=== PATIENT | female | born 1995 | race Caucasian/White ===

== ENCOUNTER 2018-11-28 16:33 | Observation (INO) | payer BC, SELFPAY ==
[2018-11-28 16:34] VITALS: BP 129/79; PULSE 83; RESP 16; TEMP 36.3; O2SAT 96; BMI 36.4
--- NOTE | 2018-11-28 17:25 | CT_ITS ---
STUDY: CT BRAIN WITHOUT CONTRAST REASON FOR EXAM: Female, 23 years old. Left lower wild weakness and numbness RADIATION DOSAGE (If Supplied By Facility): CTDIvol = ( 44.99 ) mGy, DLP = ( 829.85 ) mGycm TECHNIQUE: Transaxial CT imaging of the brain was performed without administration of intravenous contrast material. Individualized dose optimization techniques were used for this CT. COMPARISON: No relevant priors. FINDINGS: Brain parenchyma is intact without acute intracranial hemorrhage, mass effect, midline shift, hydrocephalus or herniation. There is enlargement of the pineal gland measuring 1.8 cm with CSF equivalent density, most likely cyst. The skull is intact. CT/Brain/Head without Contrast IMPRESSION: 1. No acute findings. 2. 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 This can be confirmed with elective nonemergent MR of the brain with and without contrast. Electronically Signed: Edgar Pizano, at 17:50 EDT Tel , Service support ,
--- NOTE | 2018-11-28 17:25 | EKG12_ITS ---
Test Reason : LOWER EXTREMITY Blood Pressure : / mmHG Vent. Rate : 066 BPM Atrial Rate : 066 BPM P-R Int : 158 ms QRS Dur : 084 ms QT Int : 376 ms P-R-T Axes : 008 035 018 degrees QTc Int : 394 ms Normal sinus rhythm Normal ECG Confirmed by BLOSSOM SPEAR MD ([id number]), medical editor HAYLEY NELSON ([id number]) on 12/02/2018 8:52:01 AM Referred By: KIRAN Confirmed By:BLOSSOM SPEAR MD
--- NOTE | 2018-11-28 17:27 | ED.VIS.STROK ---
History of Present Illness Chief Complaint: Lower Extremity Injury Onset: Days - 3 Context: - - awoke w/ sx Quality and Location: Left Leg Parasthesia, Left Leg Weakness Current Severity: Severe Maximum Severity: Severe Worsened by: nothing Relieved by: nothing Associated Symptoms: Negative for: Headache, Nausea, Vomiting, Chest Pain Narrative: Patient has had a foot drop for the last 3 days and basically has been walking around for 3 days dragging her foot. She has been numb from the proximal atwood down, all on the left side. She has had no other focal neurologic symptoms in her right lower extremity or upper extremities, no headaches, no back pain, no fevers, no vision changes, no recent injuries. She states the paresthesias are painful. Prior similar symptoms: No - Past Medical History (1) Depression Status: Chronic (2) Anxiety Status: Chronic (3) IBS (irritable bowel syndrome) Status: Chronic (4) Migraines Status: Chronic Past Medical History - Allergies and Home Meds Allergies/Adverse Reactions: Allergies No Known Allergies Allergy (Verified 11/28/18 16:35) Primary Care Physician: Jose G Bains DO [Primary Care Provider] - Smoking Status: Current every day smoker Review of Systems General: Denies: Chills, Fever, Sweats Eyes: Denies: Visual changes - bilaterally, Diplopia ENT: Denies: Rhinorrhea, Sore throat Cardiovascular: Denies: Chest pain, Palpitations Respiratory: Denies: Dyspnea, Cough, Dyspnea on exertion Gastrointestinal: Denies: Abdominal pain, Nausea, Vomiting, Diarrhea, Melena, Hematochezia Genitourinary: Denies: Dysuria, Hematuria, Frequency Musculoskeletal: Denies: Neck pain, Back pain, Extremity Pain Skin: Denies: Rash, Wounds Neurological: Reports: Weakness, Numbness. Denies: Headache Physical Exam Vital Signs/Narrative: Vital Signs Temp Pulse Resp BP Pulse Ox 11/28/18 16:34 97.4 F L 83 16 129/79 H 96 Inital Vital Signs reviewed: Yes - NIH Stroke Scale 1a Level of Consciousness: 0 1b LOC Questions (Score 2 if aphasic/stupor): 0 1c LOC Commands (Only score 1st attempt): 0 2 Best Gaze (If aphasic, use reflexive mvmts.): 0 3 Visual: 0 4 Facial Palsy: 0 5 Motor Arm Right (UN = amputation/fusion): 0 5 Motor Arm Left: 0 6 Motor Leg Right: 0 6 Motor Leg Left: 0 7 Limb ataxia (Only + if out of proportion): 0 8 Sensory (Aphasia/stupor=0 or 1, coma=2): 1 9 Best Language: 0 10 Dysarthria (mute, coma=2, intubated=UN): 0 11 Extinction and Inattention (only scored if +): 0 Total Score: 1 General: Well nourished, Well developed Head: Normocephalic, Atraumatic Eyes: Perrl, EOMI ENT: Moist mucous membranes, No rhinorrhea Neck: Supple, Nontender Cardiovascular: Regular rate, Regular rhythm, No murmurs, Normal S1, Normal S2. Negative for: Tachycardia Respiratory: No distress, CTA bilaterally, Chest nontender Abdomen: Soft, Nontender, Nondistended, Normal bowel sounds Back: Nontender, Normal Inspection Extremities: Nontender, No edema Skin: Normal color, No rash Neurological: Alert, Oriented x3, Cranial nerves II-XII grossly intact, Parasthesia - below prox atwood left leg, Weakness - below left knee; not able to move ankle/foot, - - hyperreflexic left patellar DTR; nml achilles bilat, downgoing toes, no clonus bilat Psychological: Normal Mood. Negative for: Normal affect - Very flat affect Diagnostic/Tx/Re-eval Impressions Brain CT 11/28/18 17:25 IMPRESSION: 1. No acute findings. 2. 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 This can be confirmed with elective nonemergent MR of the brain with and without contrast. Electronically Signed: Edgar Pizano, at 17:50 EDT Tel , Service support , 11/28/18 17:25 Brain/Head without Contrast [CT] Stat Laboratory Results 11/28/18 11/28/18 11/28/18 17:45 17:45 17:45 WBC 7.8 RBC 4.75 Hgb 14.7 Hct 44.1 MCV 92.8 MCH 30.9 MCHC 33.3 RDW 12.2 RDW Differential 41.2 Plt Count 465 H MPV 9.7 Immature Gran % (Auto) 0.400 Neut % (Auto) 61.4 Lymph % (Auto) 26.9 [place] % (Auto) 8.1 Eos % (Auto) 2.7 Baso % (Auto) 0.5 Absolute Neuts (auto) 4.8 Absolute Lymphs (auto) 2.10 Total Counted Not Reportable PT 12.8 INR 1.0 APTT 32.2 Sodium 141 Potassium 4.2 Chloride 107 Carbon Dioxide 26.0 Anion Gap 8 BUN 7 Creatinine 0.61 Estim Creat Clear Calc 129.07 Est GFR (MDRD) Af Amer 155 Est GFR (MDRD) Non-Af 128 BUN/Creatinine Ratio 11.4 Glucose 93 Calcium 9.1 Troponin I < 0.015 POC Glucose 11/28/18 17:55 WBC RBC Hgb Hct MCV MCH MCHC RDW RDW Differential Plt Count MPV Immature Gran % (Auto) Neut % (Auto) Lymph % (Auto) [place] % (Auto) Eos % (Auto) Baso % (Auto) Absolute Neuts (auto) Absolute Lymphs (auto) Total Counted PT INR APTT Sodium Potassium Chloride Carbon Dioxide Anion Gap BUN Creatinine Estim Creat Clear Calc Est GFR (MDRD) Af Amer Est GFR (MDRD) Non-Af BUN/Creatinine Ratio Glucose Calcium Troponin I POC Glucose 91 - Rhythm Strip Rhythm Strip: Sinus Rhythm Rate: 66 Ectopy: None - EKG Initial EKG Interpretation: Sinus Rhythm, No Acute Injury Pattern - nml EKG - Medical Decision Making Stroke Team Activated: No - Due to timing IV TPA Administered: No - Due to timing Discussed with neurology Dr. Carlos; he advises MRI of the brain and back to rule out central cause, although this may be peripheral. He advises admitting the patient to the hospital for that since MRI is not available at this time emergently. On further discussion with the patient and her mom, she now tells me that she has a history of pseudoseizures, and that she was at [facility] [facility] on day 1 of this in their ER, had a CT of her head that showed the pineal gland similarly, and apparently it is a little enlarged compared to imaging she had before, they have not had a chance to follow-up with her neurologist Dr. Brown yet. They are amenable to being admitted for further work-up and evaluation. Peripheral neuropathy is in the differential diagnosis, as is conversion disorder. There is no way to rule in or rule out either 1 of those at this time and her neurologic deficits persist on reevaluation. ED Disposition - Plan for ED Patient: Disposition: Acute Care Hospital [facility] Diagnosis: Left foot drop Referrals: Jose G Bains DO [Primary Care Provider] -
--- NOTE | 2018-11-28 17:30 | ED.DCSUM_ITS ---
History of Present Illness Chief Complaint: Lower Extremity Injury Onset: Days - 3 Context: - - awoke w/ sx Quality and Location: Left Leg Parasthesia, Left Leg Weakness Current Severity: Severe Maximum Severity: Severe Worsened by: nothing Relieved by: nothing Associated Symptoms: Negative for: Headache, Nausea, Vomiting, Chest Pain Narrative: Patient has had a foot drop for the last 3 days and basically has been walking around for 3 days dragging her foot. She has been numb from the proximal atwood down, all on the left side. She has had no other focal neurologic symptoms in her right lower extremity or upper extremities, no headaches, no back pain, no fevers, no vision changes, no recent injuries. She states the paresthesias are painful. Prior similar symptoms: No - Past Medical History (1) Depression Status: Chronic (2) Anxiety Status: Chronic (3) IBS (irritable bowel syndrome) Status: Chronic (4) Migraines Status: Chronic Past Medical History - Allergies and Home Meds Allergies/Adverse Reactions: Allergies No Known Allergies Allergy (Verified 11/28/18 16:35) Primary Care Physician: Jose G Bains DO [Primary Care Provider] - Smoking Status: Current every day smoker Review of Systems General: Denies: Chills, Fever, Sweats Eyes: Denies: Visual changes - bilaterally, Diplopia ENT: Denies: Rhinorrhea, Sore throat Cardiovascular: Denies: Chest pain, Palpitations Respiratory: Denies: Dyspnea, Cough, Dyspnea on exertion Gastrointestinal: Denies: Abdominal pain, Nausea, Vomiting, Diarrhea, Melena, Hematochezia Genitourinary: Denies: Dysuria, Hematuria, Frequency Musculoskeletal: Denies: Neck pain, Back pain, Extremity Pain Skin: Denies: Rash, Wounds Neurological: Reports: Weakness, Numbness. Denies: Headache Physical Exam Vital Signs/Narrative: Vital Signs Temp Pulse Resp BP Pulse Ox 11/28/18 16:34 97.4 F L 83 16 129/79 H 96 Inital Vital Signs reviewed: Yes - NIH Stroke Scale 1a Level of Consciousness: 0 1b LOC Questions (Score 2 if aphasic/stupor): 0 1c LOC Commands (Only score 1st attempt): 0 2 Best Gaze (If aphasic, use reflexive mvmts.): 0 3 Visual: 0 4 Facial Palsy: 0 5 Motor Arm Right (UN = amputation/fusion): 0 5 Motor Arm Left: 0 6 Motor Leg Right: 0 6 Motor Leg Left: 0 7 Limb ataxia (Only + if out of proportion): 0 8 Sensory (Aphasia/stupor=0 or 1, coma=2): 1 9 Best Language: 0 10 Dysarthria (mute, coma=2, intubated=UN): 0 11 Extinction and Inattention (only scored if +): 0 Total Score: 1 General: Well nourished, Well developed Head: Normocephalic, Atraumatic Eyes: Perrl, EOMI ENT: Moist mucous membranes, No rhinorrhea Neck: Supple, Nontender Cardiovascular: Regular rate, Regular rhythm, No murmurs, Normal S1, Normal S2. Negative for: Tachycardia Respiratory: No distress, CTA bilaterally, Chest nontender Abdomen: Soft, Nontender, Nondistended, Normal bowel sounds Back: Nontender, Normal Inspection Extremities: Nontender, No edema Skin: Normal color, No rash Neurological: Alert, Oriented x3, Cranial nerves II-XII grossly intact, Parasthesia - below prox atwood left leg, Weakness - below left knee; not able to move ankle/foot, - - hyperreflexic left patellar DTR; nml achilles bilat, downgoing toes, no clonus bilat Psychological: Normal Mood. Negative for: Normal affect - Very flat affect Diagnostic/Tx/Re-eval Impressions Brain CT 11/28/18 17:25 IMPRESSION: 1. No acute findings. 2. 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 This can be confirmed with elective nonemergent MR of the brain with and without contrast. Electronically Signed: Edgar Pizano, at 17:50 EDT Tel , Service support , 11/28/18 17:25 Brain/Head without Contrast [CT] Stat Laboratory Results 11/28/18 11/28/18 11/28/18 17:45 17:45 17:45 WBC 7.8 RBC 4.75 Hgb 14.7 Hct 44.1 MCV 92.8 MCH 30.9 MCHC 33.3 RDW 12.2 RDW Differential 41.2 Plt Count 465 H MPV 9.7 Immature Gran % (Auto) 0.400 Neut % (Auto) 61.4 Lymph % (Auto) 26.9 [place] % (Auto) 8.1 Eos % (Auto) 2.7 Baso % (Auto) 0.5 Absolute Neuts (auto) 4.8 Absolute Lymphs (auto) 2.10 Total Counted Not Reportable PT 12.8 INR 1.0 APTT 32.2 Sodium 141 Potassium 4.2 Chloride 107 Carbon Dioxide 26.0 Anion Gap 8 BUN 7 Creatinine 0.61 Estim Creat Clear Calc 129.07 Est GFR (MDRD) Af Amer 155 Est GFR (MDRD) Non-Af 128 BUN/Creatinine Ratio 11.4 Glucose 93 Calcium 9.1 Troponin I < 0.015 POC Glucose 11/28/18 17:55 WBC RBC Hgb Hct MCV MCH MCHC RDW RDW Differential Plt Count MPV Immature Gran % (Auto) Neut % (Auto) Lymph % (Auto) [place] % (Auto) Eos % (Auto) Baso % (Auto) Absolute Neuts (auto) Absolute Lymphs (auto) Total Counted PT INR APTT Sodium Potassium Chloride Carbon Dioxide Anion Gap BUN Creatinine Estim Creat Clear Calc Est GFR (MDRD) Af Amer Est GFR (MDRD) Non-Af BUN/Creatinine Ratio Glucose Calcium Troponin I POC Glucose 91 - Rhythm Strip Rhythm Strip: Sinus Rhythm Rate: 66 Ectopy: None - EKG Initial EKG Interpretation: Sinus Rhythm, No Acute Injury Pattern - nml EKG - Medical Decision Making Stroke Team Activated: No - Due to timing IV TPA Administered: No - Due to timing Discussed with neurology Dr. Carlos; he advises MRI of the brain and back to rule out central cause, although this may be peripheral. He advises admitting the patient to the hospital for that since MRI is not available at this time emergently. On further discussion with the patient and her mom, she now tells me that she has a history of pseudoseizures, and that she was at [place] on day 1 of this in their ER, had a CT of her head that showed the pineal gland similarl y, and apparently it is a little enlarged compared to imaging she had before, they have not had a chance to follow-up with her neurologist Dr. Brown yet. They are amenable to being admitted for further work-up and evaluation. Peripheral neuropathy is in the differential diagnosis, as is conversion disorder. There is no way to rule in or rule out either 1 of those at this time and her neurologic deficits persist on reevaluation. ED Disposition - Plan for ED Patient: Disposition: Acute Care Hospital [facility] Diagnosis: Left foot drop Referrals: Jose G Bains DO [Primary Care Provider] -
--- NOTE | 2018-11-28 17:51 | NURSING ---
NO OLD EKGS
[2018-11-28 17:54] LABS: Absolute Neutrophil Count 4.8 X10^3/uL (2.0-7.7); Basophil# 0.04 X10^3/uL; Basophil% 0.5 % (0-1); Eosinophil# 0.21 X10^3/uL; Eosinophils% 2.7 % (0-5); Hematocrit 44.1 % (37-47); Hemoglobin 14.7 g/dl (12.0-15.0); Lymphocyte % 26.9 % (19-41); Mean Corp Hgb Conc 33.3 g/gl (32-36); Mean Corpuscular Hgb 30.9 pg (27.0-32.0); Mean Corpuscular Volume 92.8 fL (81-99); Mean Platelet Vol. 9.7 fl (6.2-12.0); Monocyte# 0.63 X10^3/uL; Monocyte% 8.1 % (0-10); Neutrophil # 4.81 X10^3/uL (2.7-7.7); Neutrophil % 61.4 % (47-70); Platelet Count 465 K/mm3 (150-450); RBC Distribution Width CV 12.2 % (11.6-14.6); RBC Distribution Width SD 41.2 fl (35.1-43.9); Red Blood Count 4.75 M/mm3 (4.2-5.4); White Blood Count 7.8 K/mm3 (4.4-11.0)
[2018-11-28 18:01] LABS: Bedside Glucose 91 mg/dL (70-110)
[2018-11-28 18:03] LABS: POSITIVE COUNT NO; POSITIVE DIFFERENTIAL NO; POSITIVE MORPHOLOGY NO
[2018-11-28 18:08] LABS: Anion Gap 8 (5-15); BUN 7 mg/dL (7-18); BUN/Creat Ratio 11.4 RATIO (10-20); Calcium,Total 9.1 mg/dL (8.5-10.1); Chloride 107 mmol/L (98-107); Creatinine, Serum 0.61 mg/dL (0.55-1.02); EST Glomerular Filtration Rate 128 mL/min (>60); Est Glom Filt Rate - Afr Amer 155 mL/min (>60); Estimated Creatinine Clearance 129.07 ml/min; Glucose 93 mg/dL (74-106); Potassium 4.2 mmol/L (3.5-5.1); Prothrombin Time (Protime)PT. 12.8 SECONDS (11.7-14.9); Sodium Level 141 mmol/L (136-145)
[2018-11-28 18:09] LABS: Partial Thromboplast Time 32.2 Seconds (24.1-36.2)
--- NOTE | 2018-11-28 19:40 | ED.RN ---
PT UP TO BATHROOM WHILE WAITING FOR NEUROLOGY TO CALL BACK. NOTED FOOT DROP AND SLIGHT UNSTEADY GAIT. MOTHER WITH PT.
[2018-11-28 19:51] VITALS: BP 122/80; PULSE 73; RESP 16
--- NOTE | 2018-11-28 20:31 | PCM.HP.STD ---
Problem List (1) Left foot drop Status: Acute (2) Tobacco use Status: Chronic (3) Obesity (BMI 30-39.9) Status: Chronic (4) History of pseudoseizure Status: Chronic (5) Depression Status: Chronic Qualifiers: Depression Type: unspecified Qualified Code(s): F32.9 - Major depressive disorder, single episode, unspecified (6) Anxiety Status: Chronic (7) IBS (irritable bowel syndrome) Status: Chronic Qualifiers: Irritable bowel syndrome type: unspecified Qualified Code(s): K58.9 - Irritable bowel syndrome without diarrhea (8) Migraines Status: Chronic Qualifiers: Migraine type: unspecified Status migrainosus presence: without status migrainosus Intractability: not intractable Qualified Code(s): G43.909 - Migraine, unspecified, not intractable, without status migrainosus History of Present Illness Date of Admission: 11/28/18 Chief Complaint: L foot drop and numbness The patient is a 23 y/o F w/ PMHx: Obesity, Migraines, Anxiety and Depression, Hx Pseudoseizures, IBS, Tobacco use who presents to the [facility] ED on 11/28/18 with history of awakening this past Saturday with left foot drop and numbness which she notes has worsened with initially primarily pedal numbness and has advanced to numbness on the posterior calf and lateral calf downward. She denies any recent trauma or illnesses. She was evaluated at an outside facility with onset and following evaluation was referred to neurology, Dr. Brown but has not seen yet. She saw an orthopedic surgeon who referred her again to the ED. Work-up in the ED included T 97.4, heart rate 83, BP 129/79, respiratory rate 16, 96% on room air, unremarkable CBC aside mild platelet increased to 465, unremarkable coags, unremarkable BMP, troponin less than 0.015, CT brain with no acute findings aside presumed pineal cyst. Neurology was consulted per ED and also discussed case with Hospitalist, requested MRI brain, MRI cervical spine, MRI lumbar spine with and without contrast. Past Medical History Past Medical History (Chronic Problems): Chronic Problems Depression (Chronic) Anxiety (Chronic) IBS (irritable bowel syndrome) (Chronic) Migraines (Chronic) Tobacco use (Chronic) Obesity (BMI 30-39.9) (Chronic) History of pseudoseizure (Chronic) Allergies No Known Allergies Allergy (Verified 11/28/18 16:35) Home Medications: Ambulatory Orders Medication Instructions Recorded Gabapentin [Neurontin] 400 mg PO TID 11/29/16 ALPRAZolam [Xanax] 1 mg PO BID PRN PRN 11/28/18 Bifidobacterium Infantis [Align] 4 mg PO DAILY 11/28/18 Sertraline HCl 200 mg PO QHS 11/28/18 Zolpidem Tartrate 5 mg PO QHS 11/28/18 Surgical History: - - [place] teeth extraction. 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 Smoking Status: Current every day smoker - Patient currently smokes less than 1 pack/day prescription back used. Tobacco Use: Cigarettes Alcohol: None Drugs: None - *Family History Maternal History Items: - - Patient with maternal family history of thyroid disease. Paternal History Items: - - Patient with a paternal family history of lung cancer, former tobacco use history as well. Review of Systems Constitutional: Denies: Chills, Fever, Weight Change HEENT: Denies: Head Aches, Sinus Congestion, Sinus Drainage Cardiovascular: Denies: Chest Pain, Palpitations Respiratory: Denies: Cough, Shortness of breath at rest, Sputum production Gastrointestinal: Denies: Abdominal Pain, Nausea, Vomiting Genitourinary: Denies: Dysuria Musculoskeletal: Denies: Joint Pain, Joint Tenderness Skin: Denies: Rash, Wounds Neurological: Reports: Focal weakness, Numbness. Denies: Tingling Psychiatric: Reports: Anxiety, Depression. Denies: Homicidal Ideations, Suicidal Ideations Hematologic/ Lymphatic: Denies: Easy Bruising, Easy Bleeding VTE Information - Inpt Only VTE Present on Admission: No VTE Mechan Device Prophylaxis: SCD's VTE Pharm Prophylaxis ordered?: Yes Patient Problems: Active and Suspected Problems Left foot drop (Acute) Subjective: Seated upright in ED bed, no acute distress, mildly irritable. Objective: Physical Examination: General: awake, alert, oriented x 3 and cooperative, seated upright in the ED bed in no apparent distress. Skin: normal color, turgor, no icterus, cyanosis. HEENT: AT/NC, EOMI, PERRLA, MMM, no carotid bruits or JVD noted. Lungs: CTA bilaterally, moderate effort, mild decrease BL bases, no rales, ronchi or wheezing. Heart: Regular rate and rhythm; no gallop, rub audible. Abdomen: soft, obese, NTTP, ND, normal BS, no HSM. Extremities: no cyanosis, clubbing, or edema, see neurological examination. Neurological: patient awake, alert, oriented x 3; cognitive function intact; pupils equally reactive to light and accomodation; cranial nerves II-XII grossly normal, reduced sensation to the LLE starting posterior knee downward and lateral knee downward, BL reflexes intact and equal, notable debility in LLE movement, negative babinski BL, unable to perform HTS LLE, LLE strength 2/5. Psychiatric: affect appears initially mildly irritable but improved, no acute evidence of depressive or anxiety feelings. - Physical Exam Vital Signs Temp Pulse Resp BP Pulse Ox 97.4 F L 73 16 122/80 H 96 11/28/18 16:34 11/28/18 19:51 11/28/18 19:51 11/28/18 19:51 11/28/18 16:34 Oxygen Delivery Method Room Air Weight: 219 lb Body Mass Index (BMI) 36.4 Finger Stick Blood Glucose 91 Laboratory Tests Past 24 Hrs 11/28/18 11/28/18 11/28/18 17:45 17:45 17:45 WBC 7.8 RBC 4.75 Hgb 14.7 Hct 44.1 MCV 92.8 MCH 30.9 MCHC 33.3 RDW 12.2 RDW Differential 41.2 Plt Count 465 H MPV 9.7 Immature Gran % (Auto) 0.400 Neut % (Auto) 61.4 Lymph % (Auto) 26.9 [place] % (Auto) 8.1 Eos % (Auto) 2.7 Baso % (Auto) 0.5 Absolute Neuts (auto) 4.8 Absolute Lymphs (auto) 2.10 Total Counted Not Reportable PT 12.8 INR 1.0 APTT 32.2 Sodium 141 Potassium 4.2 Chloride 107 Carbon Dioxide 26.0 Anion Gap 8 BUN 7 Creatinine 0.61 Estim Creat Clear Calc 129.07 Est GFR (MDRD) Af Amer 155 Est GFR (MDRD) Non-Af 128 BUN/Creatinine Ratio 11.4 Glucose 93 Calcium 9.1 Troponin I < 0.015 POC Glucose 11/28/18 17:55 POC Glucose 91 Assessment/Plan All Active Problems Left foot drop (Acute) The patient is a 23 y/o F w/ PMHx: Obesity, Migraines, Anxiety and Depression, Hx Pseudoseizures, IBS, Tobacco use who presents to the [facility] ED on 11/28/18 with history of awakening this past Saturday with left foot drop and numbness which she notes has worsened with initially primarily pedal numbness and has advanced to numbness on the posterior calf and lateral calf downward. (1) Acute left foot drop and paresthesias: Work-up in the ED included T 97.4, heart rate 83, BP 129/79, respiratory rate 16, 96% on room air, unremarkable CBC aside mild platelet increased to 465, unremarkable coags, unremarkable BMP, troponin less than 0.015, CT brain with no acute findings aside presumed pineal cyst. Will admit to PCU, maintain on telemetry monitoring, continue neurology evaluation, will obtain MRI brain, cervical spine as well as a lumbar spine with and without contrast per discussion with neurology, maintain on fall precautions, PT and OT evaluations, TSH, magnesium, urine drug screen requested, maintain on neurological assessments. (2) Incidental Pineal Cyst: CT brain with no acute findings aside presumed pineal cyst, MRI brain pending as noted. (3) Tobacco Abuse: Encouraged cessation, inpatient consultation per RT, NR if desired. (4) Anxiety and depression: Continue home Xanax, sertraline regimen. (5) Chronic migraines: Patient notes that she is on chronic Neurontin therapy for chronic migraines. (6) Obesity: Weight loss and lifestyle changes encouraged. (7) IBS: We will hold home oral probiotic. (8) DVT Prophylaxis: SCDs, lovenox. Code Visit OBSV E&M: [id number] Initial observation care L3
[2018-11-28 21:38] VITALS: PULSE 73
[2018-11-28 21:49] VITALS: BMI 37.0
[2018-11-28 21:50] VITALS: BMI 37.0
[2018-11-28 21:59] VITALS: BP 112/72; PULSE 69; RESP 18; TEMP 36.9; O2SAT 97
[2018-11-28 22:03] VITALS: BP 107/73
[2018-11-28 22:18] LABS: Thyroid Stim Hormone (TSH) 0.81 uIU/mL (0.358-3.74)
[2018-11-28 23:04] VITALS: PULSE 75
[2018-11-28] MEDS: Zolpidem Tartrate 5 MG Tablet PO (23:05)
[2018-11-28] MEDS: Gabapentin 400 MG Capsule PO (23:05)
[2018-11-28] MEDS: Sertraline 100 MG Tablet 200 MG PO (23:06)
[2018-11-28] MEDS: Acetaminophen 325 MG Tablet 650 MG PO (23:06)
[2018-11-28] MEDS: 0.9% NaCl Peripheral Flush Adult/Peds IV (23:08)
[2018-11-28] MEDS: 0.9% Normal Saline 1,000 ML 150 ML IV (23:13)
[2018-11-29] VITALS (11 sets, daily range): BP systolic 102–124; BP diastolic 56–70; PULSE 56–75; RESP 15–16; TEMP 36.3–36.9; O2SAT 95–100
[2018-11-29] MEDS: Gabapentin 400 MG Capsule PO ×3 (05:52→22:21)
[2018-11-29] MEDS: 0.9% Normal Saline 1,000 ML 150 ML IV ×2 (05:52→16:55)
--- NOTE | 2018-11-29 06:00 | MRI_ITS ---
STUDY: MRI LUMBAR SPINE WITH AND WITHOUT CONTRAST REASON FOR EXAM: Female, 23 years old. Left foot drop since 11/25/2018. TECHNIQUE: Standardized fat and water weighted pulse sequences were obtained in the sagittal and axial planes. 20 IV Dotarem was administered for the contrast portion of the examination. COMPARISON: None FINDINGS: T11-T12: (Sagittal only). Normal endplates. Normal disc height, hydration and morphology. No ventral extradural defect. Normal central canal and bilateral intervertebral neural foramina. T12-L1: (Sagittal only). Normal endplates. Normal disc height, hydration and morphology. No ventral extradural defect. Normal central canal and bilateral intervertebral neural foramina. Normal lumbar lordosis. There is no substantial scoliosis. Normal conus medullaris that terminates at the T12-L1 disc level. L1-2: Normal endplates. Normal disc height, hydration and morphology. Normal bilateral facet joints. Normal central canal and bilateral lateral recesses. Normal bilateral intervertebral neural foramina. L2-3: Normal endplates. Normal disc height, hydration and morphology. Normal bilateral facet joints. Normal central canal and bilateral lateral recesses. Normal bilateral intervertebral neural foramina. L3-4: Normal endplates. Normal disc height, hydration and morphology. Mild central canal stenosis with an AP canal diameter of 10 mm. Mild dorsal epidural lipomatosis. Normal bilateral lateral recesses. Normal facet joints. Normal bilateral intervertebral neural foramina. L4-5: Normal endplates. Normal disc height, hydration and morphology. Mild central canal stenosis with an AP canal diameter 8.6 mm. Normal bilateral lateral recesses. Normal facet joints. Normal bilateral intervertebral neural foramina. L5-S1: Normal endplates. Normal disc height and morphology. Normal tapered termination of the thecal sac. Normal central canal and bilateral lateral recesses. Normal facet joints. Normal bilateral intervertebral foramina. Normal visualized sacral ala. Normal visualized paraspinous soft tissue structures. No enhancing lesions intradurally and extradurally. MRI/Spine Lumbar W/WO Contrast IMPRESSION: 1. No MRI evidence of lumbar extruded disc fragment or nerve root displacement. 2. Mild central canal stenosis at L3-L4 and L4-L5 disc space level secondary to developmentally short pedicles. 3. No MRI evidence of any enhancing lesions intradurally and extradurally. Electronically Signed: Tyrese Slade MD at 14:55 EDT , Service support ,
--- NOTE | 2018-11-29 06:00 | MRI_ITS ---
STUDY: MRI BRAIN WITH AND WITHOUT CONTRAST REASON FOR EXAM: Female, 23 years old. Left foot drop since 11/25/2018. TECHNIQUE: Standardized multiplanar fat and water weighted pulse sequences were obtained. 20 IV Dotarem was administered for the contrast portion of the examination. COMPARISON: CT brain without contrast 11/28/2018. FINDINGS: No restricted diffusion to suspect acute or subacute ischemic infarct. No focal signal abnormalities throughout the brain parenchyma. The [place] matter, white matter, ventricles and cisterns are normal. Normal size of the ventricles and extra-axial spaces for the patient's age. Normal white matter tracts of the supratentorial brain. Normal bilateral basal ganglia. Normal thalami. There is no extra-axial fluid accumulation. Normal flow voids within the major intracranial circulation suggesting patency by spin echo criteria. Normal venous enhancement. There is no enhancing intra-axial or extra-axial abnormality. Normal sella turcica, pituitary gland, infundibular stalk, optic chiasm and hypothalamus. Normal tectal plate. Nonenhancing benign pineal cyst. Normal midbrain, ana laura and medulla. Normal cerebellum. Normal basal cisterns. Normal bilateral temporal bones. Normal bilateral internal auditory canals. No demonstrated orbital abnormality, within the constraints of a routine brain study. Normal visualized paranasal sinuses. Normal calvarium and skull base. Normal visualized soft tissue structures. Normal visualized upper cervical spine. MRI/Brain W/WO Contrast IMPRESSION: 1. 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 2. Otherwise normal MRI of the brain with and without contrast. Electronically Signed: Tyrese Slade MD at 13:28 EDT , Service support ,
--- NOTE | 2018-11-29 06:00 | MRI_ITS ---
STUDY: MRI CERVICAL SPINE WITH AND WITHOUT CONTRAST REASON FOR EXAM: Female, 23 years old. Left foot drop since 11/25/2018. TECHNIQUE: Standardized fat and water weighted pulse sequences were obtained in the sagittal and axial following administration of 20 IV Dotarem. COMPARISON: None FINDINGS: Normal foramen magnum and brainstem-cervical cord junction. Normal craniovertebral junction. Normal anterior atlantoaxial articulation. Normal odontoid process. Normal cervical lordosis. Normal vertebral bodies and posterior osseous elements. C2-3: Normal endplates. Normal disc height, signal and morphology. Normal central canal and intervertebral neural foramina. C3-4: Normal endplates. Normal disc height, signal and morphology. Normal central canal and intervertebral neural foramina. C4-5: Normal endplates. Normal disc height, signal and morphology. Normal central canal and intervertebral neural foramina. C5-6: Normal endplates. Normal disc height, signal and morphology. Normal central canal and intervertebral neural foramina. C6-7: Normal endplates. Normal disc height, signal and morphology. Normal central canal and intervertebral neural foramina. C7-T1: Normal endplates. Normal disc height, signal and morphology. Normal central canal and intervertebral neural foramina. Normal cervical cord. Normal visualized soft tissue structures. MRI/Spine Cervical W/WO Contrast IMPRESSION: Normal unenhanced and enhanced MR examination of the cervical spine. Electronically Signed: Tyrese Slade MD at 14:56 EDT , Service support ,
[2018-11-29 07:13] LABS: Amphetamine Urine VISTA NEGATIVE (<1000 ng/mL); Barbiturate Urine VISTA NEGATIVE (< 200 ng/mL); Benzodiazepine Urine VISTA POSITIVE (< 200 ng/mL); Cocaine Urine VISTA NEGATIVE (< 300 ng/mL); Ecstacy Urine VISTA NEGATIVE (< 500 ng/mL); Methadone Urine VISTA NEGATIVE (< 300 ng/mL); PCP Urine VISTA NEGATIVE (< 25 ng/mL); THC Urine VISTA NEGATIVE (< 50 ng/mL); Vista UDS pH Range 6
[2018-11-29 07:34] LABS: Absolute Lymphocyte Count 3.31 X10^3/ul (0.83-4.51); Absolute Neutrophil Count 3.9 X10^3/uL (2.0-7.7); Basophil# 0.04 X10^3/uL; Basophil% 0.5 % (0-1); Eosinophil# 0.54 X10^3/uL; Eosinophils% 6.4 % (0-5); Hemoglobin 13.6 g/dl (12.0-15.0); Lymphocyte # 3.31 X10^3/ul (4.0); Mean Corp Hgb Conc 33.2 g/gl (32-36); Mean Corpuscular Hgb 30.8 pg (27.0-32.0); Mean Platelet Vol. 9.9 fl (6.2-12.0); Monocyte# 0.71 X10^3/uL; Monocyte% 8.4 % (0-10); Neutrophil # 3.85 X10^3/uL (2.7-7.7); Neutrophil % 45.3 % (47-70); Platelet Count 472 K/mm3 (150-450); RBC Distribution Width CV 12.1 % (11.6-14.6); RBC Distribution Width SD 41.1 fl (35.1-43.9); Red Blood Count 4.41 M/mm3 (4.2-5.4); White Blood Count 8.5 K/mm3 (4.4-11.0)
[2018-11-29 07:42] LABS: POSITIVE COUNT NO; POSITIVE DIFFERENTIAL NO; POSITIVE MORPHOLOGY NO
[2018-11-29 07:59] LABS: Anion Gap 8 (5-15); BUN 9 mg/dL (7-18); BUN/Creat Ratio 14.4 RATIO (10-20); Calcium,Total 8.9 mg/dL (8.5-10.1); Chloride 107 mmol/L (98-107); Creatinine, Serum 0.63 mg/dL (0.55-1.02); EST Glomerular Filtration Rate 125 mL/min (>60); Est Glom Filt Rate - Afr Amer 151 mL/min (>60); Estimated Creatinine Clearance 124.97 ml/min; Glucose 83 mg/dL (74-106); Potassium 4.1 mmol/L (3.5-5.1); Sodium Level 141 mmol/L (136-145)
--- NOTE | 2018-11-29 09:03 | CON.PCM_ITS ---
Problem List (1) Left leg weakness Status: Acute (2) Left foot drop Status: Acute Reason for Consult Date of Consultation: 11/29/18 Reason for Consultation: Left foot numbness/weakness and left leg weakness History of Present Illness: The patient is a 23 year old F with PMH depression/anxiety, migraine, IBS, history of pseudoseizure, tobacco abuse admitted with left foot weakness/numb ness and left leg numbness. Per patient she started having left foot weakness and left leg numbness starting 11/25/2018. Per patient she also complains left leg weakness and as the symptoms continues to progress she came for further evaluation. Per patient she was evaluated at an outside facility and probably was also seen by an orthopedic surgeon who referred her to ED. At present patient denies any headache, dizziness, visual disturbances, speech disturbances, any upper extremity weakness or sensory loss in the upper extremities, denies any neck pain, lower back pain, radicular symptoms, urinary or bowel incontinence. Patient denies any falls. She also denies any weakness in the right lower extremities or sensory loss in the right lower extremities. Patient denies any trauma, fever or tick bite. CT head on admission reported to show presumed pineal cyst. [] Past Medical History Past Medical History (Chronic Problems): Chronic Problems Depression (Chronic) Anxiety (Chronic) IBS (irritable bowel syndrome) (Chronic) Migraines (Chronic) Tobacco use (Chronic) Obesity (BMI 30-39.9) (Chronic) History of pseudoseizure (Chronic) Allergies No Known Allergies Allergy (Verified 11/28/18 16:35) Home Medications: Ambulatory Orders Medication Instructions Recorded Gabapentin [Neurontin] 400 mg PO TID 11/29/16 ALPRAZolam [Xanax] 1 mg PO BID PRN PRN 11/28/18 Bifidobacterium Infantis [Align] 4 mg PO DAILY 11/28/18 Sertraline HCl 200 mg PO QHS 11/28/18 Zolpidem Tartrate 5 mg PO QHS 11/28/18 Surgical History: - - [place] teeth extraction. Psychiatric History: Anxiety, Depression MATERIALS SCHEDULER History: No pertinent MATERIALS SCHEDULER history Lives: With Family - Patient was with mother. Smoking Status: Current every day smoker Tobacco Use: Cigarettes Alcohol: None Drugs: None - *Family History Maternal History Items: - - Patient with maternal family history of thyroid disease. Paternal History Items: - - Patient with a paternal family history of lung cancer, former tobacco use history as well. Review of Systems Constitutional: Reports: - - Complete ROS negative except as documented in HPI Patient Problems: Active and Suspected Problems Left foot drop (Acute) Left leg weakness (Acute) - Physical Exam General: Alert HEENT: Normocephalic Neck: Supple Lungs: Normal air movement Cardiovascular: Normal S1, Normal S2 Abdomen: Bowel Sounds Present Extremities: No cyanosis Neurological: - - Conscious, alert, CN?2-12 grossly intact, power 5/5 both upper extremities, 5/5 right LE, 4/5 left LE, 0/5 left ankle, dorsiflexion/plantar flexion, sensory loss to light touch left calf and left foot (L5-S1 distribution), reflexes +++ B/L B/S/T/K + A, right ankle ill sustained clonus, plantar B/L equivocal, gait deferred Psych/Mental Status: Normal Affect Vital Signs Temp Pulse Resp BP Pulse Ox 97.4 F L 72 15 113/70 98 11/29/18 08:36 11/29/18 08:36 11/29/18 08:36 11/29/18 08:36 11/29/18 08:36 Oxygen Delivery Method Room Air Weight: 100.9 kg Body Mass Index (BMI) 37.0 Finger Stick Blood Glucose 91 Intake and Output for Last 24 Hours 11/27/18 11/28/18 11/29/18 23:59 23:59 23:59 Intake Total 305 / 305 746 / 746 Balance 305 / 305 746 / 746 Laboratory Tests Past 24 Hrs 11/28/18 11/28/18 11/28/18 17:45 17:45 17:45 WBC 7.8 RBC 4.75 Hgb 14.7 Hct 44.1 MCV 92.8 MCH 30.9 MCHC 33.3 RDW 12.2 RDW Differential 41.2 Plt Count 465 H MPV 9.7 Immature Gran % (Auto) 0.400 Neut % (Auto) 61.4 Lymph % (Auto) 26.9 [place] % (Auto) 8.1 Eos % (Auto) 2.7 Baso % (Auto) 0.5 Absolute Neuts (auto) 4.8 Absolute Lymphs (auto) 2.10 Total Counted Not Reportable PT 12.8 INR 1.0 APTT 32.2 Sodium 141 Potassium 4.2 Chloride 107 Carbon Dioxide 26.0 Anion Gap 8 BUN 7 Creatinine 0.61 Estim Creat Clear Calc 129.07 Est GFR (MDRD) Af Amer 155 Est GFR (MDRD) Non-Af 128 BUN/Creatinine Ratio 11.4 Glucose 93 Calcium 9.1 Magnesium Troponin I < 0.015 TSH Urine Opiates Screen Urine Methadone Screen Ur Barbiturates Screen Ur Phencyclidine Scrn Ur Amphetamines Screen U Methamphetamin-MDMA U Benzodiazepines Scrn Urine Cocaine Screen U Cannabinoids Screen Ur Drug Screen Comment 11/28/18 11/29/18 11/29/18 21:44 06:03 06:03 WBC 8.5 RBC 4.41 Hgb 13.6 Hct 41.0 MCV 93.0 MCH 30.8 MCHC 33.2 RDW 12.1 RDW Differential 41.1 Plt Count 472 H MPV 9.9 Immature Gran % (Auto) 0.400 Neut % (Auto) 45.3 L Lymph % (Auto) 39.0 [place] % (Auto) 8.4 Eos % (Auto) 6.4 H Baso % (Auto) 0.5 Absolute Neuts (auto) 3.9 Absolute Lymphs (auto) 3.31 Total Counted Not Reportable PT INR APTT Sodium 141 Potassium 4.1 Chloride 107 Carbon Dioxide 26.0 Anion Gap 8 BUN 9 Creatinine 0.63 Estim Creat Clear Calc 124.97 Est GFR (MDRD) Af Amer 151 Est GFR (MDRD) Non-Af 125 BUN/Creatinine Ratio 14.4 Glucose 83 Calcium 8.9 Magnesium 2.0 Troponin I TSH 0.81 Urine Opiates Screen Urine Methadone Screen Ur Barbiturates Screen Ur Phencyclidine Scrn Ur Amphetamines Screen U Methamphetamin-MDMA U Benzodiazepines Scrn Urine Cocaine Screen U Cannabinoids Screen Ur Drug Screen Comment 11/29/18 06:05 WBC RBC Hgb Hct MCV MCH MCHC RDW RDW Differential Plt Count MPV Immature Gran % (Auto) Neut % (Auto) Lymph % (Auto) [place] % (Auto) Eos % (Auto) Baso % (Auto) Absolute Neuts (auto) Absolute Lymphs (auto) Total Counted PT INR APTT Sodium Potassium Chloride Carbon Dioxide Anion Gap BUN Creatinine Estim Creat Clear Calc Est GFR (MDRD) Af Amer Est GFR (MDRD) Non-Af BUN/Creatinine Ratio Glucose Calcium Magnesium Troponin I TSH Urine Opiates Screen NEGATIVE Urine Methadone Screen NEGATIVE Ur Barbiturates Screen NEGATIVE Ur Phencyclidine Scrn NEGATIVE Ur Amphetamines Screen NEGATIVE U Methamphetamin-MDMA NEGATIVE U Benzodiazepines Scrn POSITIVE H Urine Cocaine Screen NEGATIVE U Cannabinoids Screen NEGATIVE Ur Drug Screen Comment POC Glucose 11/28/18 17:55 POC Glucose 91 Assessment/Plan All Active Problems Left foot drop (Acute) Left leg weakness (Acute) The patient is a 23 year old F with PMH depression/anxiety, migraine, IBS, history of pseudoseizure, tobacco abuse admitted with left foot weakness/numbness and left leg numbness. Per patient she started having left foot weakness and left leg numbness starting 11/25/2018. Per patient she also complains left leg weakness and as the symptoms continues to progress she came for further evaluation. Per patient she was evaluated at an outside facility and probably was also seen by an orthopedic surgeon who referred her to ED. At present patient denies any headache, dizziness, visual disturbances, speech disturbances, any upper extremity weakness or sensory loss in the upper extremities, denies any neck pain, lower back pain, radicular symptoms, urinary or bowel incontinence. Patient denies any falls. She also denies any weakness in the right lower extremities or sensory loss in the right lower extremities. Patient denies any trauma, fever or tick bite. CT head on admission reported to show presumed pineal cyst. Impression Rule out compressive cervical myelopathy versus transverse myelitis versus peripheral etiology Pineal cyst Plan ?Check MRI of the brain with and without contrast, MRI cervical/thoracic/lumbar spine with and without contrast ?If neuroimaging is abnormal and based on the neuroimaging findings may need lumbar puncture ?If neuroimaging is unrevealing then probably indicates peripheral etiology and may need EMG/nerve conduction studies as outpatient in 3 to 4 weeks -Pineal cyst-neurosurgery consult as outpatient ?Labs reviewed, UDS positive for benzodiazepine. ?Patient counseled to quit smoking ?PT/OT ?Fall precautions ?GI/DVT prophylaxis ?Further medical management per hospitalist team ?Please call with questions if any ?Thank you for allowing us to participate in patient's care and management Code Visit Inpatient E&M: [id number] Init Hosp L3
--- NOTE | 2018-11-29 09:03 | MRI_ITS ---
STUDY: MRI THORACIC SPINE WITH AND WITHOUT CONTRAST REASON FOR EXAM: Female, 23 years old. Left foot drop since 11/25/2018. TECHNIQUE: 20 IV Dotarem was administered for the contrast portion of the examination. COMPARISON: None. FINDINGS: Normal kyphosis of the thoracic spine. There is no substantial scoliosis. T1-2, T2-3, T3-4, T4-5, T5-6, T6-7, T7-8, T8-9, T9-10, T10-11, T11-12: Normal endplates. Normal disc hydration, heights and morphology of the corresponding intervertebral discs. Normal central canal and intervertebral neural foramina at the corresponding levels. Normal visualized thoracic cord. Normal conus medullaris that terminates at the T12-L1 disc level. The soft tissue structures are unremarkable. There is no enhancing abnormality. MRI/Spine Thoracic W/WO Contrast IMPRESSION: Normal unenhanced and enhanced MRI examination of the thoracic spine. Electronically Signed: Tyrese Slade MD at 13:25 EDT , Service support ,
--- NOTE | 2018-11-29 09:27 | NURSING ---
Piercings removed and placed in plastic container on overbed table.
[2018-11-29] MEDS: Enoxaparin 40 MG/0.4 ML Syringe SC (09:28)
--- NOTE | 2018-11-29 13:45 | PN_ITS ---
Patient Problems: Active and Suspected Problems Left foot drop (Acute) Left leg weakness (Acute) Subjective: Patient seen and examined. Complains of left foot drop/left foot weakness with mild numbness as well. Denies other neurologic symptoms or focal deficits. She reports she has been able to walk without difficulty. She has never had the symptoms in the past. - Physical Exam General: Alert, Oriented x3, Cooperative HEENT: Atraumatic, PERRLA, EOMI, Normocephalic Neck: Supple, No JVD, Negative Carotid Bruits Lungs: Clear to auscultation, Normal air movement Cardiovascular: Regular rate, Regular Rhythm, Normal S1, Normal S2, No murmurs Abdomen: Bowel Sounds Present, Soft, Non Tender, Non-Distended Extremities: No clubbing, No cyanosis, No edema, Capillary Refill Less than 3 Seconds Skin: No rashes Musculoskeletal: No Tenderness to Palpation of Joints or Extremities Neurological: Cranial nerves II-XII grossly intact, - - left ankle without any resistance. Able to lift left leg off of bed. Mild sensory loss to left foot/ankle. Psych/Mental Status: Normal Affect, Appropriate Vital Signs Temp Pulse Resp BP Pulse Ox 97.4 F L 72 15 113/70 98 11/29/18 08:36 11/29/18 08:36 11/29/18 08:36 11/29/18 08:36 11/29/18 08:36 Oxygen Delivery Method Room Air Weight: 222 lb 7.143 oz Body Mass Index (BMI) 37.0 Finger Stick Blood Glucose 91 Intake and Output for Last 24 Hours 11/27/18 11/28/18 11/29/18 23:59 23:59 23:59 Intake Total 305 / 305 1333 / 1333 Balance 305 / 305 1333 / 1333 Laboratory Tests Past 24 Hrs 11/28/18 11/28/18 11/28/18 17:45 17:45 17:45 WBC 7.8 RBC 4.75 Hgb 14.7 Hct 44.1 MCV 92.8 MCH 30.9 MCHC 33.3 RDW 12.2 RDW Differential 41.2 Plt Count 465 H MPV 9.7 Immature Gran % (Auto) 0.400 Neut % (Auto) 61.4 Lymph % (Auto) 26.9 [place] % (Auto) 8.1 Eos % (Auto) 2.7 Baso % (Auto) 0.5 Absolute Neuts (auto) 4.8 Absolute Lymphs (auto) 2.10 Total Counted Not Reportable PT 12.8 INR 1.0 APTT 32.2 Sodium 141 Potassium 4.2 Chloride 107 Carbon Dioxide 26.0 Anion Gap 8 BUN 7 Creatinine 0.61 Estim Creat Clear Calc 129.07 Est GFR (MDRD) Af Amer 155 Est GFR (MDRD) Non-Af 128 BUN/Creatinine Ratio 11.4 Glucose 93 Calcium 9.1 Magnesium Troponin I < 0.015 TSH Urine Opiates Screen Urine Methadone Screen Ur Barbiturates Screen Ur Phencyclidine Scrn Ur Amphetamines Screen U Methamphetamin-MDMA U Benzodiazepines Scrn Urine Cocaine Screen U Cannabinoids Screen Ur Drug Screen Comment 11/28/18 11/29/18 11/29/18 21:44 06:03 06:03 WBC 8.5 RBC 4.41 Hgb 13.6 Hct 41.0 MCV 93.0 MCH 30.8 MCHC 33.2 RDW 12.1 RDW Differential 41.1 Plt Count 472 H MPV 9.9 Immature Gran % (Auto) 0.400 Neut % (Auto) 45.3 L Lymph % (Auto) 39.0 [place] % (Auto) 8.4 Eos % (Auto) 6.4 H Baso % (Auto) 0.5 Absolute Neuts (auto) 3.9 Absolute Lymphs (auto) 3.31 Total Counted Not Reportable PT INR APTT Sodium 141 Potassium 4.1 Chloride 107 Carbon Dioxide 26.0 Anion Gap 8 BUN 9 Creatinine 0.63 Estim Creat Clear Calc 124.97 Est GFR (MDRD) Af Amer 151 Est GFR (MDRD) Non-Af 125 BUN/Creatinine Ratio 14.4 Glucose 83 Calcium 8.9 Magnesium 2.0 Troponin I TSH 0.81 Urine Opiates Screen Urine Methadone Screen Ur Barbiturates Screen Ur Phencyclidine Scrn Ur Amphetamines Screen U Methamphetamin-MDMA U Benzodiazepines Scrn Urine Cocaine Screen U Cannabinoids Screen Ur Drug Screen Comment 11/29/18 06:05 WBC RBC Hgb Hct MCV MCH MCHC RDW RDW Differential Plt Count MPV Immature Gran % (Auto) Neut % (Auto) Lymph % (Auto) [place] % (Auto) Eos % (Auto) Baso % (Auto) Absolute Neuts (auto) Absolute Lymphs (auto) Total Counted PT INR APTT Sodium Potassium Chloride Carbon Dioxide Anion Gap BUN Creatinine Estim Creat Clear Calc Est GFR (MDRD) Af Amer Est GFR (MDRD) Non-Af BUN/Creatinine Ratio Glucose Calcium Magnesium Troponin I TSH Urine Opiates Screen NEGATIVE Urine Methadone Screen NEGATIVE Ur Barbiturates Screen NEGATIVE Ur Phencyclidine Scrn NEGATIVE Ur Amphetamines Screen NEGATIVE U Methamphetamin-MDMA NEGATIVE U Benzodiazepines Scrn POSITIVE H Urine Cocaine Screen NEGATIVE U Cannabinoids Screen NEGATIVE Ur Drug Screen Comment POC Glucose 11/28/18 17:55 POC Glucose 91 Medical Necessity - Tobacco Use Smoking Status: Current every day smoker Tobacco Use: Cigarettes Assessment/Plan All Active Problems Left foot drop (Acute) Left leg weakness (Acute) 1. Left foot drop/left lower extremity numbness-neurology consulted. MRI of brain unremarkable with the exception of benign pineal cyst. Thoracic spine normal. Lumbar and cervical spine MRI report pending. If these are unremarkable, neurology recommending lumbar puncture as well as nerve conduction studies. Nerve conduction studies can be completed as outpatient. PT/OT. 2. Incidental pineal cyst-as noted on CT of brain. MRI of brain shows 1.5 cm nonenhancing benign pineal cyst. 3. Tobacco dependence-encouraged tobacco cessation. 4. Anxiety/depression-continue Xanax, sertraline regimen. 5. Chronic migraines-on Neurontin for chronic migraines per patient. 6. IBS-continue home probiotic regimen. 7. Obesity-encouraged diet lifestyle modifications. DVT prophylaxis-SCDs, Lovenox. This patient was seen by ELIDA Villegas under the supervision of Dr. Mccormack.
[2018-11-29] MEDS: 0.9% NaCl Peripheral Flush Adult/Peds IV (14:05)
[2018-11-29] MEDS: Zolpidem Tartrate 5 MG Tablet PO (22:21)
[2018-11-29] MEDS: Sertraline 100 MG Tablet 200 MG PO (22:21)
[2018-11-30 00:07] VITALS: BP 110/63; PULSE 65; RESP 23; TEMP 37.2; O2SAT 95
[2018-11-30] MEDS: 0.9% Normal Saline 1,000 ML 150 ML IV ×2 (00:12→07:53)
[2018-11-30] MEDS: oxyCODONE 5 MG Tablet PO (00:18)
[2018-11-30 03:03] VITALS: PULSE 62
[2018-11-30 04:20] VITALS: BP 102/65; PULSE 67; RESP 16; TEMP 37.2; O2SAT 97
[2018-11-30] MEDS: Gabapentin 400 MG Capsule PO (05:42)
[2018-11-30 08:28] VITALS: O2SAT 98
[2018-11-30 09:02] VITALS: PULSE 77
[2018-11-30 09:33] VITALS: BP 115/74; PULSE 63; RESP 18; TEMP 37; O2SAT 97
[2018-11-30] MEDS: Enoxaparin 40 MG/0.4 ML Syringe SC (09:46)
[2018-11-30] MEDS: Aspirin 81 MG TAB.CHEW PO (09:47)
--- NOTE | 2018-11-30 10:34 | PCM.DC ---
- Discharge Diagnoses Current Active Problems: Current Active and Chronic Problems Left foot drop (Acute) Tobacco use (Chronic) Obesity (BMI 30-39.9) (Chronic) History of pseudoseizure (Chronic) Left leg weakness (Acute) You will use the following diet at home:: No restrictions Discharge Activity: Return to Normal Activity Call your doctor if you observe: Shortness of breath, Dizziness, Fainting spells, Chest pain Additional Instructions: You will need to have electromyography/nerve conduction studies completed in [address] Carlos office to schedule. Allergies/Adverse Reactions: Allergies No Known Allergies Allergy (Verified 11/28/18 16:35) Medications to take at Discharge Gabapentin [Neurontin] 400 mg PO TID 11/29/16 ALPRAZolam [Xanax] 1 mg PO BID PRN PRN 11/28/18 Bifidobacterium Infantis [Align] 4 mg PO DAILY 11/28/18 Sertraline HCl 200 mg PO QHS 11/28/18 Zolpidem Tartrate 5 mg PO QHS 11/28/18 Primary Care Physician: Jose G Bains DO [Primary Care Provider] - Please follow up with your Primary Care Physician in: 1 Week Test Results: Test results from this visit will be discussed in further detail at your follow-up appointment, if applicable. Please Follow Up With: Floresita Carlos MD - [phone] When: 3 weeks for nerve conduction testing, office follow up 2 wks following test Proposed Discharge Date: 11/30/18
--- NOTE | 2018-11-30 10:39 | DCINST_ITS ---
- Discharge Diagnoses Current Active Problems: Current Active and Chronic Problems Left foot drop (Acute) Tobacco use (Chronic) Obesity (BMI 30-39.9) (Chronic) History of pseudoseizure (Chronic) Left leg weakness (Acute) You will use the following diet at home:: No restrictions Discharge Activity: Return to Normal Activity Call your doctor if you observe: Shortness of breath, Dizziness, Fainting spells, Chest pain Additional Instructions: You will need to have electromyography/nerve conduction studies completed in [address] Carlos office to schedule. Allergies/Adverse Reactions: Allergies No Known Allergies Allergy (Verified 11/28/18 16:35) Medications to take at Discharge Gabapentin [Neurontin] 400 mg PO TID 11/29/16 ALPRAZolam [Xanax] 1 mg PO BID PRN PRN 11/28/18 Bifidobacterium Infantis [Align] 4 mg PO DAILY 11/28/18 Sertraline HCl 200 mg PO QHS 11/28/18 Zolpidem Tartrate 5 mg PO QHS 11/28/18 Primary Care Physician: Jose G Bains DO [Primary Care Provider] - Please follow up with your Primary Care Physician in: 1 Week Test Results: Test results from this visit will be discussed in further detail at your follow- up appointment, if applicable. Please Follow Up With: Floresita Carlos MD - [phone] When: 3 weeks for nerve conduction testing, office follow up 2 wks following test Proposed Discharge Date: 11/30/18
--- NOTE | 2018-11-30 10:43 | PCM.DC.SUM ---
Discharge Date and Diagnosis Date of Admission: 11/28/18 Date of Discharge: 11/30/18 - Primary Discharge Diagnosis Active and Suspected Problems 1. Left foot drop/left lower extremity paresthesias 2. Incidental pineal cyst 3. Tobacco dependence 4. Anxiety/depression 5. Chronic migraines 6. IBS 7. Obesity - Secondary Discharge Diagnosis Chronic Problems Depression (Chronic) Anxiety (Chronic) IBS (irritable bowel syndrome) (Chronic) Migraines (Chronic) Tobacco use (Chronic) Obesity (BMI 30-39.9) (Chronic) History of pseudoseizure (Chronic) Hospital Course and Treatment Imaging Results: Diagnostic Data Brain CT 11/28/18 17:25 IMPRESSION: 1. No acute findings. 2. 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 This can be confirmed with elective nonemergent MR of the brain with and without contrast. Electronically Signed: Edgar Pizano at 17:50 EDT Tel , Service support , Brain MRI 11/29/18 06:00 IMPRESSION: 1. 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 2. Otherwise normal MRI of the brain with and without contrast. Electronically Signed: Tyrese Slade MD at 13:28 EDT , Service support , Cervical Spine MRI 11/29/18 06:00 IMPRESSION: Normal unenhanced and enhanced MR examination of the cervical spine. Electronically Signed: Tyrese Slade MD at 14:56 EDT , Service support , Lumbar Spine MRI 11/29/18 06:00 IMPRESSION: 1. No MRI evidence of lumbar extruded disc fragment or nerve root displacement. 2. Mild central canal stenosis at L3-L4 and L4-L5 disc space level secondary to developmentally short pedicles. 3. No MRI evidence of any enhancing lesions intradurally and extradurally. Electronically Signed: Tyrese Slade MD at 14:55 EDT , Service support , Thoracic Spine MRI 11/29/18 09:03 IMPRESSION: Normal unenhanced and enhanced MRI examination of the thoracic spine. Electronically Signed: Tyrese Slade MD at 13:25 EDT , Service support , Dr. Carlos- Neurology Operations: None Procedures: None Summary of Care Provided: The patient is a 23 year old F admitted 11/28/2017 due to left foot drop and numbness. 1. Left foot drop/left lower extremity paresthesias-neurology consulted. MRI of brain unremarkable with the exception of benign pineal cyst. Thoracic spine normal. Cervical spine normal. Lumbar spine unremarkable with the exception of mild central canal stenosis at L3-L4 and L4-L5 secondary to develop any short pedicles. No lesions. Neurology recommending EMG/nerve conduction studies as outpatient in 3 to 4 weeks. Follow-up with neurology following testing. Follow-up with primary care provider in 1 week. Outpatient physical therapy at discharge. 2. Incidental pineal cyst-as noted on CT of brain. MRI of brain shows 1.5 cm nonenhancing benign pineal cyst. Recommend referral to neurosurgery consult as outpatient which can be referred by primary care physician. 3. Tobacco dependence-encouraged tobacco cessation. 4. Anxiety/depression-continue Xanax, sertraline regimen. 5. Chronic migraines-on Neurontin for chronic migraines per patient. 6. IBS-continue home probiotic regimen. 7. Obesity-encouraged diet lifestyle modifications. General: Alert, Oriented x3, Cooperative HEENT: Atraumatic, PERRLA, EOMI, Normocephalic Neck: Supple, No JVD, Negative Carotid Bruits Lungs: Clear to auscultation, Normal air movement Cardiovascular: Regular rate, Regular Rhythm, Normal S1, Normal S2, No murmurs Abdomen: Bowel Sounds Present, Soft, Non Tender, Non-Distended Extremities: No clubbing, No cyanosis, No edema, Capillary Refill Less than 3 Seconds Skin: No rashes Musculoskeletal: No Tenderness to Palpation of Joints or Extremities Neurological: Cranial nerves II-XII grossly intact, left ankle without any resistance. Able to lift left leg off of bed. Mild sensory loss to left foot/ankle. Psych/Mental Status: Normal Affect, Appropriate Patient seen and examined prior to discharge. Physical assessment as noted above. Patient is stable for discharge with follow up recommendations as noted above. This patient was seen by ELIDA Villegas under the supervision of Dr. Mccormack. - Physical Exam Vital Signs Temp Pulse Resp BP Pulse Ox 98.6 F 63 18 115/74 97 11/30/18 09:33 11/30/18 09:33 11/30/18 09:33 11/30/18 09:33 11/30/18 09:33 Oxygen Delivery Method Room Air Weight: 222 lb 7.143 oz Body Mass Index (BMI) 37.0 Finger Stick Blood Glucose 91 Intake and Output for Last 24 Hours 11/28/18 11/29/18 11/30/18 23:59 23:59 23:59 Intake Total 305 / 305 4288 / 4288 1017 / 1017 Balance 305 / 305 4288 / 4288 1017 / 1017 Discharge Diet: 1800 Calorie Control Diet Discharge Activity: Return to Normal Activity Call your doctor if you observe: Shortness of breath, Dizziness, Fainting spells, Chest pain Home Medications: Medications to take at Discharge Gabapentin [Neurontin] 400 mg PO TID 11/29/16 ALPRAZolam [Xanax] 1 mg PO BID PRN PRN 11/28/18 Bifidobacterium Infantis [Align] 4 mg PO DAILY 11/28/18 Sertraline HCl 200 mg PO QHS 11/28/18 Zolpidem Tartrate 5 mg PO QHS 11/28/18 Primary Care Physician: Jose G Bains DO [Primary Care Provider] - Please follow up with your Primary Care Physician in: 1 Week Please Follow Up With: Floresita Carlos MD - [phone] When: 3 weeks for nerve conduction testing, office follow up 2 wks following test Disposition: Home Minutes spent on discharge:: 35 Patient Condition:: Stable Medical Necessity - Tobacco Use Smoking Status: Current every day smoker Tobacco Use: Cigarettes Meaningful Use Info Meaningful Use Diagnoses (Choose all that apply): None applicable
--- NOTE | 2018-11-30 10:47 | DS.PCM_ITS ---
Discharge Date and Diagnosis Date of Admission: 11/28/18 Date of Discharge: 11/30/18 - Primary Discharge Diagnosis Active and Suspected Problems 1. Left foot drop/left lower extremity paresthesias 2. Incidental pineal cyst 3. Tobacco dependence 4. Anxiety/depression 5. Chronic migraines 6. IBS 7. Obesity - Secondary Discharge Diagnosis Chronic Problems Depression (Chronic) Anxiety (Chronic) IBS (irritable bowel syndrome) (Chronic) Migraines (Chronic) Tobacco use (Chronic) Obesity (BMI 30-39.9) (Chronic) History of pseudoseizure (Chronic) Hospital Course and Treatment Imaging Results: Diagnostic Data Brain CT 11/28/18 17:25 IMPRESSION: 1. No acute findings. 2. 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 This can be confirmed with elective nonemergent MR of the brain with and without contrast. Electronically Signed: Edgar Pizano at 17:50 EDT Tel , Service support , Brain MRI 11/29/18 06:00 IMPRESSION: 1. 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 2. Otherwise normal MRI of the brain with and without contrast. Electronically Signed: Tyrese Slade MD at 13:28 EDT , Service support , Cervical Spine MRI 11/29/18 06:00 IMPRESSION: Normal unenhanced and enhanced MR examination of the cervical spine. Electronically Signed: Tyrese Slade MD at 14:56 EDT , Service support , Lumbar Spine MRI 11/29/18 06:00 IMPRESSION: 1. No MRI evidence of lumbar extruded disc fragment or nerve root displacement. 2. Mild central canal stenosis at L3-L4 and L4-L5 disc space level secondary to developmentally short pedicles. 3. No MRI evidence of any enhancing lesions intradurally and extradurally. Electronically Signed: Tyrese Slade MD at 14:55 EDT , Service support , Thoracic Spine MRI 11/29/18 09:03 IMPRESSION: Normal unenhanced and enhanced MRI examination of the thoracic spine. Electronically Signed: Tyrese Slade MD at 13:25 EDT , Service support , Dr. Carlos- Neurology Operations: None Procedures: None Summary of Care Provided: The patient is a 23 year old F admitted 11/28/2017 due to left foot drop and numbness. 1. Left foot drop/left lower extremity paresthesias-neurology consulted. MRI of brain unremarkable with the exception of benign pineal cyst. Thoracic spine normal. Cervical spine normal. Lumbar spine unremarkable with the exception of mild central canal stenosis at L3-L4 and L4-L5 secondary to develop any short pedicles. No lesions. Neurology recommending EMG/nerve conduction studies as outpatient in 3 to 4 weeks. Follow-up with neurology following testing. Follow-up with primary care provider in 1 week. Outpatient physical therapy at discharge. 2. Incidental pineal cyst-as noted on CT of brain. MRI of brain shows 1.5 cm nonenhancing benign pineal cyst. Recommend referral to neurosurgery consult as outpatient which can be referred by primary care physician. 3. Tobacco dependence-encouraged tobacco cessation. 4. Anxiety/depression-continue Xanax, sertraline regimen. 5. Chronic migraines-on Neurontin for chronic migraines per patient. 6. IBS-continue home probiotic regimen. 7. Obesity-encouraged diet lifestyle modifications. General: Alert, Oriented x3, Cooperative HEENT: Atraumatic, PERRLA, EOMI, Normocephalic Neck: Supple, No JVD, Negative Carotid Bruits Lungs: Clear to auscultation, Normal air movement Cardiovascular: Regular rate, Regular Rhythm, Normal S1, Normal S2, No murmurs Abdomen: Bowel Sounds Present, Soft, Non Tender, Non-Distended Extremities: No clubbing, No cyanosis, No edema, Capillary Refill Less than 3 Seconds Skin: No rashes Musculoskeletal: No Tenderness to Palpation of Joints or Extremities Neurological: Cranial nerves II-XII grossly intact, left ankle without any resistance. Able to lift left leg off of bed. Mild sensory loss to left foot/ankle. Psych/Mental Status: Normal Affect, Appropriate Patient seen and examined prior to discharge. Physical assessment as noted above. Patient is stable for discharge with follow up recommendations as noted above. This patient was seen by ELIDA Villegas under the supervision of Dr. Mccormack. - Physical Exam Vital Signs Temp Pulse Resp BP Pulse Ox 98.6 F 63 18 115/74 97 11/30/18 09:33 11/30/18 09:33 11/30/18 09:33 11/30/18 09:33 11/30/18 09:33 Oxygen Delivery Method Room Air Weight: 222 lb 7.143 oz Body Mass Index (BMI) 37.0 Finger Stick Blood Glucose 91 Intake and Output for Last 24 Hours 11/28/18 11/29/18 11/30/18 23:59 23:59 23:59 Intake Total 305 / 305 4288 / 4288 1017 / 1017 Balance 305 / 305 4288 / 4288 1017 / 1017 Discharge Diet: 1800 Calorie Control Diet Discharge Activity: Return to Normal Activity Call your doctor if you observe: Shortness of breath, Dizziness, Fainting spells, Chest pain Home Medications: Medications to take at Discharge Gabapentin [Neurontin] 400 mg PO TID 11/29/16 ALPRAZolam [Xanax] 1 mg PO BID PRN PRN 11/28/18 Bifidobacterium Infantis [Align] 4 mg PO DAILY 11/28/18 Sertraline HCl 200 mg PO QHS 11/28/18 Zolpidem Tartrate 5 mg PO QHS 11/28/18 Primary Care Physician: Jose G Bains DO [Primary Care Provider] - Please follow up with your Primary Care Physician in: 1 Week Please Follow Up With: Floresita Carlos MD - [phone] When: 3 weeks for nerve conduction testing, office follow up 2 wks following test Disposition: Home Minutes spent on discharge:: 35 Patient Condition:: Stable Medical Necessity - Tobacco Use Smoking Status: Current every day smoker Tobacco Use: Cigarettes Meaningful Use Info Meaningful Use Diagnoses (Choose all that apply): None applicable
--- NOTE | 2018-12-01 10:15 | CASEMGMT ---
Per Chasity TERMITE INSPECTOR, pt needs order for OP therapy thru [facility]. Order signed and faxed to [facility] at this time with pt facesheet. Gris MACARIO CM
== END 2018-11-30 10:42 | disposition home or self-care (01) ==
LOC: ED 20:02 → PCU 20:47
PROVIDERS: Admitting Provider Family Medicine; Emergency Provider Emergency Medicine; Family Provider Student in an Organized Health Care Education/Training Program; PCP Student in an Organized Health Care Education/Training Program; Visit Provider Internal Medicine
DX: M21.372 Foot drop, left foot (principal); R20.2 Paresthesia of skin; F41.9 Anxiety disorder, unspecified; F32.9 Major depressive disorder, single episode, unspecified; K58.9 Irritable bowel syndrome, unspecified; G43.909 Migraine, unspecified, not intractable, without status migrainosus; E66.9 Obesity, unspecified; F17.210 Nicotine dependence, cigarettes, uncomplicated; G93.0 Cerebral cysts; R29.701 NIHSS score 1; Z68.37 Body mass index [BMI] 37.0-37.9, adult; Z71.3 Dietary counseling and surveillance; Z79.899 Other long term (current) drug therapy
CPT/HCPCS: 36415; 70450; 70553; 72156; 72157; 72158; 80048; 80307; 82962; 83735; 84443; 84484; 85025; 85610; 85730; 93005; 96360; 96361; 96372; 97162; 97163; 97165; 99218; 99282; A9575; J7030; A4216; G0378

== ENCOUNTER 2018-12-09 08:53 | Outpatient (RCR) | payer BC, SELFPAY ==
--- NOTE | 2018-12-09 10:02 | HP.PTEVAL ---
Patient's Visit Information ANTOINETTE CARLIN is a 23 year old F referred to Physical Therapy by ELIDA Villegas with a diagnosis of L foot drop. Date of Evaluation: 12/09/18 Physical Therapist: Suresh Vela, PT, ATC - Visit Plan Frequency: 1x/Week Duration: 1 Week Plan: Skilled PT not beneficial at this time. Recommend pt to return to neurologist. - Subjective Findings: Pt reports she awoke 3 weeks ago and fell while getting out of bed due to her drop foot in L LE. Pt reports this impairment had an insidious onset in nature. No PMHx of L drop foot. Pt reports she has had xrays, MRI, CT scan, and EMG's which have produced no reason at this time for her impairment. Pt reports she does have some LBP at this time. Pt reports she has numbness in L LE from the knee downward. Pt reports she has fallen a couple times as a result of this impairment. Pt reports her L LE is sore today at rest rating her pain at 7/10. Pt notes her pain increases to 12/10 at worst. Pt reports sleep difficulty secondary to pain. - Pain L LE Pain Intensity (Out of 10): 7 Pain Intensity Range: 10 - Objective Neuro: Pt's L LE is numb from the knee downward today. All other LE dermatones are WNL to light touch. L achilles reflex= 0/3. All other reflexes 2/3 throughout. MMT: L knee flex and ext= 3/5. L ankle is grossly 1/5 throughout. All other B LE MMT 5/5 throughout. Ankle ROM: R is WNL throughout. There is no movement in L ankle at this time. L/S ROM: WNL. repeated movments: NE with REIL and RFIL - Goals Goal 1:: N/A - Rehabilitation Potential Physical Therapy Diagnosis: L foot drop and weakness due to uncertain pathology at this time Rehabilitation Potential: Poor - Anticipated Interventions Patient/Client Instruction: Educate patient on: Condition, Plan of Care For the Purpose of:: To improve self management Thank you for the opportunity to evaluate your patient. For Medicare and Medicare HMO plans, please review the plan of care and approve it. It will need to be FAXED BACK to us at [phone] for Medicare purposes. For Medicare only, by signing this I certify the plan of care. Please let me know if there are questions or concerns regarding this plan of care. Physician Signature: Date:
== END 2018-12-09 19:00 | disposition home or self-care (01) ==
LOC: PT 08:53
PROVIDERS: Family Provider Student in an Organized Health Care Education/Training Program; PCP Student in an Organized Health Care Education/Training Program; Referring Provider Nurse Practitioner Family; Visit Provider Nurse Practitioner Family
DX: M21.372 Foot drop, left foot (principal)
CPT/HCPCS: 97161

== ENCOUNTER 2019-05-25 21:34 | Emergency (ER) | payer BC, SELFPAY ==
[2019-05-25 21:35] VITALS: BP 131/87; PULSE 108; RESP 19; TEMP 36.6; O2SAT 100; BMI 33.5
--- NOTE | 2019-05-25 21:50 | ED.RN ---
patient presents via ems for unresponsive possible overdose etoh intox, patient was violent and combative with ems. patient placed in bilateral wrist restraints with ems. patient moved to hospital bed and restraints maintained. patient unable to be redirect. confused on location and events of night. patient keeps pulling and attempted to strike at staff. patient restraints maintained for hospital staff safety and patient safety. patient physically pulling at while being left alone., unable to redirect patient
--- NOTE | 2019-05-25 21:51 | EKG12_ITS ---
Test Reason : OVERDOSE Blood Pressure : / mmHG Vent. Rate : 097 BPM Atrial Rate : 097 BPM P-R Int : 158 ms QRS Dur : 090 ms QT Int : 338 ms P-R-T Axes : 043 050 020 degrees QTc Int : 429 ms Normal sinus rhythm Normal ECG Confirmed by ROULA COPE, KARYN ([id number]), video effects editor HAYLEY NELSON ([id number]) on 05/27/2019 1:02:28 PM Referred By: HERSON Confirmed By:KARYN CELESTE MD
[2019-05-25 22:07] LABS: Absolute Lymphocyte Count 2.12 X10^3/uL (0.83-4.51); Absolute Neutrophil Count 2.8 X10^3/uL (2.0-7.7); Basophil# 0.08 X10^3/uL; Basophil% 1.4 % (0-1); Eosinophil# 0.03 X10^3/uL; Eosinophils% 0.5 % (0-5); Hematocrit 43.6 % (37-47); Hemoglobin 14.7 g/dL (12.0-15.0); Lymphocyte # 2.12 X10^3/ul (4.0); Lymphocyte % 37.3 % (19-41); Mean Corp Hgb Conc 33.7 g/dL (32-36); Mean Corpuscular Hgb 31.1 pg (27.0-32.0); Mean Corpuscular Volume 92.2 fL (81-99); Mean Platelet Vol. 9.5 fl (6.2-12.0); Monocyte# 0.61 X10^3/uL; Monocyte% 10.7 % (0-10); NRBC Flagged by Analyzer 0 % (0-5); Neutrophil # 2.83 X10^3/uL (2.7-7.7); Neutrophil % 49.7 % (47-70); Platelet Count 443 K/mm3 (150-450); RBC Distribution Width CV 11.3 % (11.6-14.6); RBC Distribution Width SD 38.7 fl (35.1-43.9); Red Blood Count 4.73 M/mm3 (4.2-5.4); White Blood Count 5.7 K/mm3 (4.4-11.0)
--- NOTE | 2019-05-25 22:11 | ED.RN ---
restraints loosened at this time. patient more oriented at this time. Patient advised if condition improves and patient is able to settle and follow directions. then restraints would be removed. patient agrees to care plan at this time
[2019-05-25 22:25] LABS: Internal QC Validated? YES +Cl - CLEAR BKGD; Pregnancy, Serum, hCG Quali. NEGATIVE Negative
[2019-05-25 22:27] LABS: ALB/GLOB Ratio 1.2 RATIO (0.9-2.4); AST(SGOT) 28 U/L (15-37); Alanine Aminotransfer ALT/SGPT 56 U/L (13-56); Albumin, Serum 4.2 g/dL (3.2-5.0); Alkaline Phosphatase 95 U/L (45-117); Anion Gap 8 (5-15); BUN 4 mg/dL (7-18); BUN/Creat Ratio 5.2 RATIO (10-20); Calcium,Total 8.7 mg/dL (8.5-10.1); Chloride 107 mmol/L (98-107); Creatinine, Serum 0.76 mg/dL (0.55-1.02); EST Glomerular Filtration Rate 99 mL/min (>60); Est Glom Filt Rate - Afr Amer 120 mL/min (>60); Estimated Creatinine Clearance 115.14 ml/min; Globulin 3.6 g/dL (2.2-4.2); Glucose 109 mg/dL (74-106); Potassium 3.7 mmol/L (3.5-5.1); Protein, Total 7.8 g/dL (6.4-8.2); Sodium Level 141 mmol/L (136-145)
--- NOTE | 2019-05-25 22:35 | ED.RN ---
restraints d/c at this time. patient able to ambulate with minimal assistance
[2019-05-25 22:38] VITALS: BP 127/90; PULSE 112; RESP 18; O2SAT 97
--- NOTE | 2019-05-25 23:05 | ED.DCSUM_ITS ---
History of Present Illness Chief Complaint: Overdose Detail of Chief Complaint: Found unresponsive in vehicle Informant: Patient, Missing Persons Investigator, - - Law enforcement Limited by: Intoxicated, Uncooperative Onset: - - Unknown Context: - - Unknown Timing: - - Persistent Quality: Depressed level of conscious with garbled incomprehensible speech Location: Found in vehicle unresponsive Current Severity: Moderate Maximum Severity: Severe Worsened by: Admits to alcohol use Relieved by: Nothing Associated Symptoms: Unable to determine Narrative: Patient is a 24-year-old female who was found unresponsive in a vehicle. Apparently she admits to alcohol consumption. There is concern for drug use. She did receive 2 mg of Narcan with no effect. History is limited secondary to altered mental status secondary to presumed alcohol intoxication. Patient arrived in restraints. She was accompanied by . Prior similar symptoms: No Recent Illness/Hospitalization: No - Past Medical History (1) Anxiety Status: Chronic (2) Depression Status: Chronic (3) History of pseudoseizure Status: Chronic (4) IBS (irritable bowel syndrome) Status: Chronic (5) Migraines Status: Chronic (6) Obesity (BMI 30-39.9) Status: Chronic (7) Tobacco use Status: Chronic Past Medical History - Allergies and Home Meds Allergies/Adverse Reactions: Allergies No Known Allergies Allergy (Verified 05/25/19 21:39) Primary Care Physician: Jose G Bains DO [Primary Care Provider] - Prior records reviewed: Yes Surgical History: - - [place] teeth extraction. Lives: Alone Smoking Status: Current every day smoker Alcohol: Heavy Drugs: None - Family History Maternal Family History: Reports: - - Patient with maternal family history of thyroid disease. Paternal Family History: Reports: - - Patient with a paternal family history of lung cancer, former tobacco use history as well. Review of Systems ROS: Unable to Obtain Physical Exam Vital Signs/Narrative: Vital Signs Temp Pulse Resp BP Pulse Ox 05/25/19 22:38 112 H 18 127/90 H 97 05/25/19 21:35 97.9 F 108 H 19 H 131/87 H 100 Inital Vital Signs reviewed: Yes General: Well nourished, Well developed, Obese, Unkempt Head: Normocephalic, Atraumatic. Negative for: Trauma, Tenderness Eyes: Perrl, EOMI. Negative for: Pale conjunctiva, Scleral icterus ENT: No rhinorrhea, TM's clear, Dry mucous membranes. Negative for: Moist mucous membranes Neck: Supple, No lymphadenopathy, No JVD Cardiovascular: Regular rhythm, No murmurs, Normal S1, Normal S2, Tachycardia Respiratory: No distress, CTA bilaterally, Chest nontender Abdomen: Soft, Nontender, Nondistended, Normal bowel sounds, No masses Rectal: Deferred Back: Nontender, Normal Inspection Extremities: Nontender, No edema Skin: Normal color, No rash, No Trauma. Negative for: Cyanosis, Diaphoresis, Jaundice Neurological: Cranial nerves II-XII grossly intact, Normal Strength - Moves all extremities appropriately, Normal Sensation - Moves to tactile stimulus, Normal DTR - 2+ symmetric with no clonus or Babinski, Normal Gait - Unable to determine. Negative for: Alert, Oriented x3 Psychological: Agitated Diagnostic/Tx/Re-eval Laboratory Results 05/25/19 05/25/19 05/25/19 21:50 21:50 21:50 WBC 5.7 RBC 4.73 Hgb 14.7 Hct 43.6 MCV 92.2 MCH 31.1 MCHC 33.7 RDW Std Deviation 38.7 RDW Coeff of Tono 11.3 L Plt Count 443 MPV 9.5 Immature Gran % (Auto) 0.400 Neut % (Auto) 49.7 Lymph % (Auto) 37.3 [place] % (Auto) 10.7 H Eos % (Auto) 0.5 Baso % (Auto) 1.4 H Absolute Neuts (auto) 2.8 Absolute Lymphs (auto) 2.12 Nucleated RBC % 0 Sodium 141 Potassium 3.7 Chloride 107 Carbon Dioxide 26.0 Anion Gap 8 BUN 4 L Creatinine 0.76 Estim Creat Clear Calc 115.14 Est GFR (MDRD) Af Amer 120 Est GFR (MDRD) Non-Af 99 BUN/Creatinine Ratio 5.2 L Glucose 109 H Calcium 8.7 Total Bilirubin 0.40 AST 28 ALT 56 Alkaline Phosphatase 95 Total Protein 7.8 Albumin 4.2 Globulin 3.6 Albumin/Globulin Ratio 1.2 Serum , Qual Urine Opiates Screen Urine Methadone Screen Ur Barbiturates Screen Ur Phencyclidine Scrn Ur Amphetamines Screen U Methamphetamin-MDMA U Benzodiazepines Scrn Urine Cocaine Screen U Cannabinoids Screen Ur Drug Screen Comment Ethyl Alcohol 110.0 05/25/19 05/25/19 21:50 22:42 WBC RBC Hgb Hct MCV MCH MCHC RDW Std Deviation RDW Coeff of Tono Plt Count MPV Immature Gran % (Auto) Neut % (Auto) Lymph % (Auto) [place] % (Auto) Eos % (Auto) Baso % (Auto) Absolute Neuts (auto) Absolute Lymphs (auto) Nucleated RBC % Sodium Potassium Chloride Carbon Dioxide Anion Gap BUN Creatinine Estim Creat Clear Calc Est GFR (MDRD) Af Amer Est GFR (MDRD) Non-Af BUN/Creatinine Ratio Glucose Calcium Total Bilirubin AST ALT Alkaline Phosphatase Total Protein Albumin Globulin Albumin/Globulin Ratio Serum , Qual NEGATIVE Urine Opiates Screen NEGATIVE Urine Methadone Screen NEGATIVE Ur Barbiturates Screen NEGATIVE Ur Phencyclidine Scrn NEGATIVE Ur Amphetamines Screen NEGATIVE U Methamphetamin-MDMA NEGATIVE U Benzodiazepines Scrn NEGATIVE Urine Cocaine Screen NEGATIVE U Cannabinoids Screen NEGATIVE Ur Drug Screen Comment Ethyl Alcohol Work-up is remarkable and alcohol level of 110. Patient was reassessed at 2325. She is arousable. Her speech has improved. Pupils are equal round reactive. She moves all extremities. She denied headache. She has no other complaints. - Medical Decision Making Metabolic, infectious work-up was initiated as well as urine for drugs of abuse and alcohol level. Missing Persons Investigator believes she may have taken Xanax. Apparently she admitted this to the grading machine operator. She now shakes head no. However unable to determine whether patient truly understands what I am asking. ED Disposition - Plan for ED Patient: Disposition: Home or Assisted Living Diagnosis: Acute alcohol intoxication, Altered mental status associated with intoxication Instructions: Alcohol Intoxication Referrals: Jose G Bains DO [Primary Care Provider] - As Needed
[2019-05-25 23:06] VITALS: BP 133/87; PULSE 109; RESP 17; O2SAT 97
[2019-05-25 23:17] LABS: Amphetamine Urine VISTA NEGATIVE (<1000 ng/mL); Barbiturate Urine VISTA NEGATIVE (< 200 ng/mL); Benzodiazepine Urine VISTA NEGATIVE (< 200 ng/mL); Cocaine Urine VISTA NEGATIVE (< 300 ng/mL); Ecstacy Urine VISTA NEGATIVE (< 500 ng/mL); Methadone Urine VISTA NEGATIVE (< 300 ng/mL); PCP Urine VISTA NEGATIVE (< 25 ng/mL); THC Urine VISTA NEGATIVE (< 50 ng/mL); Vista UDS pH Range 6
[2019-05-26] VITALS (8 sets, daily range): BP systolic 136–158; BP diastolic 73–104; PULSE 100–118; RESP 16–22; O2SAT 96–100
--- NOTE | 2019-05-26 06:33 | ED.RN ---
PT awake but resting in bed. She has called her boyfriend for a ride. He will be here closer to 700. IV removed. New vital signs taken. Offered fluids/snack, refused. Phone number to dispatch given to patient so she can find her car in am. Discharge papers given, no further questions.
== END 2019-05-26 07:59 | disposition home or self-care (01) ==
PROVIDERS: Emergency Provider Emergency Medicine; Family Provider Student in an Organized Health Care Education/Training Program; PCP Student in an Organized Health Care Education/Training Program
DX: F10.129 Alcohol abuse with intoxication, unspecified (principal); Y90.9 Presence of alcohol in blood, level not specified; F41.9 Anxiety disorder, unspecified; F32.9 Major depressive disorder, single episode, unspecified; K58.9 Irritable bowel syndrome, unspecified; G43.909 Migraine, unspecified, not intractable, without status migrainosus; E66.9 Obesity, unspecified; Z78.1 Physical restraint status; Z79.899 Other long term (current) drug therapy; F17.200 Nicotine dependence, unspecified, uncomplicated
CPT/HCPCS: 80053; 80307; 80320; 84703; 85025; 93005; 99285; A4216; G0480